=== PATIENT | male | born 1955 | race Caucasian/White ===

== ENCOUNTER → 2017-04-02 16:51 | Outpatient (CLI) | payer OTHER ==
[2017-04-02 19:04] LABS: CHOL - HDL RATIO 4.2 ratio (2.3-4.9); LDL-HDL RATIO 2.8 ratio (1.5-3.5)
== END | disposition home or self-care (01) ==
LOC: D.LABREF 16:51
PROVIDERS: Internal Medicine Cardiovascular Disease
DX: I10 Essential (primary) hypertension (principal)

== ENCOUNTER → 2017-06-17 16:24 | Outpatient (CLI) | payer OTHER ==
[2017-06-17 20:06] LABS: CHOL - HDL RATIO 2.8 ratio (2.3-4.9); LDL-HDL RATIO 1.7 ratio (1.5-3.5)
== END | disposition home or self-care (01) ==
LOC: D.LABREF 16:24
PROVIDERS: Internal Medicine Cardiovascular Disease
DX: I10 Essential (primary) hypertension (principal)

== ENCOUNTER → 2017-12-10 16:56 | Outpatient (CLI) | payer OTHER ==
[2017-12-10 17:55] LABS: CHOL - HDL RATIO 3.4 ratio (2.3-4.9); LDL-HDL RATIO 1.9 ratio (1.5-3.5)
== END | disposition home or self-care (01) ==
LOC: D.LABREF 16:56
PROVIDERS: Internal Medicine Cardiovascular Disease
DX: I10 Essential (primary) hypertension (principal)

== ENCOUNTER → 2017-12-12 12:31 | Outpatient (CLI) | payer OTHER ==
--- NOTE | ~2017-12-12 | EC ---
PATIENT:HORACE SHELLEY DATE OF SERVICE: 12/12/17 SEX: M MEDICAL RECORD: [id number] DATE OF : 55 [facility] AGE OF PATIENT: 62 ADMISSION DATE: 12/12/17 REFERRING PHYSICIAN: INTERPRETING PHYSICIAN: STUART FORD MD ECHOCARDIOGRAM REPORT ECHO CHARGES 4 ECHO COMPLETE Date: 12/12/17 CLINICAL DIAGNOSIS: HYPERCHOLESRLEMIA/HTN ECHOCARDIOGRAPHIC MEASUREMENTS (adult normal given) AC root (d.<3.7cm) 4.0 cm LV Septum d (<1.2 cm> 1.6 cm Valve Excursion 2.3 cm LV Septum (systole) 1.6 cm Left Atria (s.<4.0cm> 4.8 cm LVPW d(<1.2cm) 1.6 cm RV (d.<2.3cm) 4.7 cm LVPW (sytole) 1.8 cm LV diastole(<5.6CM) 5.8 cm MV E-F(>70mm/sec) cm LV systole 4.0 cm LVOT Diameter 2.2 cm MV exc.(>10mm) 1.8 cm Est.ejection fraction (50-75%) % DOPPLER: LVIT cm/sec A 62.0 cm/sec E 91.0 cm/sec LA cm/sec RVSP 25 mmHg LVOT 104 cm/sec AOP1/2T 711 m/s Asc. Ao 169 cm/sec RVOT 92 cm/sec RA cm/sec PA 143 cm/sec AV Gradient Peak 11.42mmHg AV Mean 6.29 mmHg AV Area 2.3 cm MV Gradient Peak 4.09 mmHg MV Mean 1.62 mmHg MV Area cm COMMENTS: Cardroom Hand: [address] Magistrate: 4 Dr. Ford TAPE# PACS Pericardial Effusion N DATE OF SERVICE: Transthoracic Echocardiogram FINDINGS: 1. Left ventricle shows evidence of left ventricular hypertrophy. The inflow characteristics were measured as normal ratios. The ejection fraction is 60% to 65%. There are no obvious regional wall motion abnormalities. Right ventricle was moderately dilated and there is right ventricular hypertrophy. 2. The left atrium has moderate left atrial enlargement, 4.8 cm. ECHOCARDIOGRAM REPORT [id number] HORACE SHELLEY 3. The aortic valve is shown to open well. It appears to be a trileaflet structure. 4. The mitral valve is normal, has good coaptation. There is mild mitral regurgitation. 5. Tricuspid valve, normally visualized. The pulse wave shows to have good function. The RVSP appears to be normal. 6. In one view, there appears to be a trace aortic insufficiency. There is no pericardial effusion. IMPRESSION: The patient has normal left ventricular systolic function, evidence of mild left ventricular hypertrophy, [id number] aortic insufficiency, and dilated right ventricle. TRANSINT:[id number] Voice Confirmation ID: [id number] DOCUMENT ID: [id number] STUART FORD MD CC: [id number] DICTATION DATE: 12/13/17904 RETAIL INTERIOR DESIGNER: 12/13/17 1008 DEP CLI 12/12/17 [id number] [place] [address]
== END | disposition home or self-care (01) ==
LOC: D.ECHO 12:31
DX: I10 Essential (primary) hypertension (principal); E78.00 Pure hypercholesterolemia, unspecified

== ENCOUNTER 2018-03-06 05:33 | Day surgery (SDC) | payer OTHER ==
[~2018-03-06] VITALS: Ht 185.4 cm; Wt 100.2 kg
--- NOTE | ~2018-03-06 | OP ---
PATIENT NAME: HORACE SHELLEY MEDICAL RECORD: [id number] :55 LOCATION:[facility] ADMISSION DATE: SURGEON: TANMAY ROOT MD DATE OF OPERATION: 03/06/2018 PREOPERATIVE DIAGNOSES: 1. Ventral hernia. 2. Hypertension. 3. Hypercholesterolemia. POSTOPERATIVE DIAGNOSES. 1. Ventral hernia. 2. Hypertension. 3. Hypercholesterolemia. PROCEDURE: Ventral hernia repair. SURGEON: Tanmay Root MD REPORT OF PROCEDURE: The patient's abdomen was prepped and draped in sterile fashion. A semicircular incision was made on the inferior aspect of the umbilicus. Electrocautery was used to dissect through the subcutaneous tissues. The umbilical stalk was elevated and just superior to this, there was noted to be a small hernia defect. The patient had some fatty tissue that was present within it that was eventually able to be reduced back into the abdominal cavity. We cleared up the fascial edges. The fascial defect was about 1.5 cm wide and 1 cm long. We cleared off the fascial edges above and below and then reapproximated the edge transversely using interrupted 0 Prolenes times 4. The wound was then irrigated out with normal saline and care was taken to assure there was no sign of any bleeding. The umbilicus was tacked down with an interrupted 3-0 Vicryl. The subcutaneous tissues were then reapproximated with interrupted 3-0 Vicryls. The skin was closed with running subcutaneous 5-0 Monocryl. A total of 10 mL of 0.25% Marcaine plain was infused into the surrounding tissues, and the wound was dressed appropriately. COMPLICATIONS: None. CONDITION: Stable. ANESTHESIA: General endotracheal and local. BLOOD LOSS: Minimal. TRANSINT:[id number] Voice Confirmation ID: [id number] DOCUMENT ID: [id number] TANMAY ROOT MD CC: ADRIENNE MARTELL [id number] DICTATION DATE: 03/06/18 0845 MIX MAKER: 03/06/18 1206 [facility] [place] 03/06/[address] [address]
[~2018-03-06 05:33] MED LIST: HCTZ25 MG PO; LIPITOR20 MG PO; LOTREL 5/10 MG1 CAP PO; MOBIC7.5 MG PO; ZOVIRAX400 MG PO
[2018-03-06 06:19] VITALS: BP 140/82; Ht 185.4 cm; Wt 100.2 kg
[2018-03-06] MEDS ORDERED: NORCO 10-325 TA1 TAB PO (08:40)
== END 2018-03-06 10:13 | disposition home or self-care (01) ==
LOC: D.PAN 05:33 → D.OPS 09:00 → D.PAN 10:13
DX: K43.9 Ventral hernia without obstruction or gangrene (principal); I10 Essential (primary) hypertension; E78.00 Pure hypercholesterolemia, unspecified; Z01.812 Encounter for preprocedural laboratory examination

== ENCOUNTER → 2018-04-24 14:58 | Outpatient (CLI) | payer OTHER ==
[2018-03-06 06:19] VITALS: BMI 29.2
[~2018-04-24 14:58] MED LIST changes: +NORCO 10-325 TA1 TAB PO
== END | disposition home or self-care (01) ==
LOC: D.CT 14:58
DX: R10.9 Unspecified abdominal pain (principal)

== ENCOUNTER → 2018-09-08 12:15 | Outpatient (CLI) | payer OTHER ==
[2018-03-06 06:19] VITALS: BMI 29.2
== END | disposition home or self-care (01) ==
LOC: D.RAD 12:15
PROVIDERS: ATTEND Urology
DX: N20.0 Calculus of kidney (principal)

== ENCOUNTER 2019-01-01 06:04 | Day surgery (SDC) | payer OTHER ==
[~2019-01-01] VITALS: Ht 185.4 cm; Wt 95.7 kg
[2019-01-01 06:58] VITALS: BP 143/74; Ht 185.4 cm; Wt 95.7 kg
[2019-01-01 07:38] LABS: BASOPHILS 0.2 % (0-2); EOSINOPHILS 0.9 % (0-7); HEMOGLOBIN 13.9 g/dL (13.5-17.5); IMMATURE GRANULOCYTES 0.2 % (0-5); LYMPHOCYTES 19.2 % (15-50); MCHC 34.8 g/dL (31.0-37.0); MEAN PLATELET VOLUME 8.9 fL (7.4-10.4); MONOCYTES 7.3 % (2-11); NEUTROPHILS 72.2 % (40-80); PLATELET COUNT 174 10x3/uL (130-400); RBC 4.35 10x6/uL (4.20-6.10); RDW 12.3 % (11.5-14.5)
[2019-01-01 07:44] LABS: CALC OSMOLALITY 285 mosm/kg (275-300); CALCIUM 8.8 mg/dL (8.5-10.1); CARBON DIOXIDE 32.2 mmol/L (21.0-32.0); CHLORIDE - SERUM 106 mmol/L (98-107); CREATININE - SERUM 0.8 mg/dL (0.6-1.3); GLUCOSE 105 mg/dL (74-106); POTASSIUM - SERUM 3.7 mmol/L (3.5-5.1); SODIUM 144 mmol/L (136-145); UREA NITROGEN 11 mg/dL (7-18); eGFR NON AFRICAN AMERICAN > 90 mL/min (90-120)
[2019-01-01] MEDS ORDERED: PERCOCET 5-3251 TAB PO (09:49)
[2019-01-01] MEDS ORDERED: CYCLOBENZAPRINE10 MG PO (09:51)
--- NOTE | 2019-01-01 15:41 | NUR ---
1355 STILL UNABLE TO VOID [id number] CC VIA BLADDER SCANNER. [address] PER [address] ROOT.S TO. PT TOLERATED WELL.
--- NOTE | 2019-01-15 13:47 | OP ---
PATIENT NAME: HORACE SHELLEY MEDICAL RECORD: [id number] :55 LOCATION:D.[facility] ADMISSION DATE: SURGEON: TANMAY ROOT MD DATE OF OPERATION: 01/01/2019 PREOPERATIVE DIAGNOSES: 1. Internal hemorrhoids. 2. Anal skin tags. 3. Hypertension. 4. Hypercholesterolemia. POSTOPERATIVE DIAGNOSES: 1. Mixed internal and external hemorrhoids. 2. Anal skin tags. 3. Hypertension. 4. Hypercholesterolemia. PROCEDURE: 1. PPH stapled hemorrhoidectomy. 2. Right anterior column hemorrhoidectomy. 3. Excision of anal skin tags times 2. SURGEON: Tanmay Root MD REPORT OF PROCEDURE: The patient was placed in the jackknife prone position and the perianal region was prepped and draped in sterile fashion. A 360-degree inspection was performed that showed the patient had internal hemorrhoids present throughout with the largest collection being on the anterior aspect of the anus. This collection of hemorrhoids extended out to an external hemorrhoid with a large skin tag. The patient also had skin tags bilaterally, which were small. We inserted the PPH anoscope and sutured it down on all 4 sides using interrupted 3-0 silks. The 2-0 Prolene was used as a pursestring inside of the anus and we were able to pass the stapler through this a pursestring and the pursestring was held tightly. With the pursestring in place, we fired the stapler. At the conclusion of this, we could see there was only the posterior aspect of the rectum had a staple fire on it. The anterior hemorrhoid, which was quite large, somehow did not make it into the stapler. We checked the staple line. There was no sign of any dehiscence of the staple line. There was no bleeding. We then placed a 2-0 chromic at the base of the anterior hemorrhoid and tied this down tightly. We then excised this hemorrhoid including the large skin tag using electrocautery with care taken not to injure the patient's sphincteric musculature. With the hemorrhoid removed, we then treated the area with electrocautery and irrigated out with normal saline. The suture was run out of the rectum to the anoderm in a locking fashion with good approximation of the tissue. We then took off the bilateral anal skin tags using electrocautery and left these wounds open. We treated the wound beds with electrocautery to stop any bleeding. We then irrigated out the wounds with normal saline and infused with a total of 10 mL of 0.25% Marcaine with epinephrine into the surrounding tissues. A piece of Gelfoam dipped in Americaine was placed into the rectum and a dressing was applied. COMPLICATIONS: None. CONDITION: Stable. OPERATIVE REPORT [id number] HORACE SHELLEY ANESTHESIA: General endotracheal and local. BLOOD LOSS: 30 mL. TRANSINT:[id number] Voice Confirmation ID: [id number] DOCUMENT ID: [id number] cc: Shannan Johnson [facility] TANMAY ROOT MD at 1347 CC: SHANNAN JOHNSON [id number] DICTATION DATE: 01/01/19 0958 ROLL FORM OPERATOR: 01/01/19 1103 [facility] [place] 01/01/19 [facility] [address] [place] [address]
== END 2019-01-01 14:45 | disposition home or self-care (01) ==
LOC: D.OPS 06:04 → D.PAN 08:15 → D.OPS 14:45
PROVIDERS: Anesthesiology; ATTEND Surgery
DX: K64.8 Other hemorrhoids (principal); K64.4 Residual hemorrhoidal skin tags; I10 Essential (primary) hypertension; E78.00 Pure hypercholesterolemia, unspecified

== ENCOUNTER → 2019-01-07 12:41 | Outpatient (CLI) | payer OTHER ==
[2019-01-01 06:58] VITALS: BMI 27.9
[~2019-01-07 12:41] MED LIST changes: +CYCLOBENZAPRINE10 MG PO; +PERCOCET 5-3251 TAB PO
== END | disposition home or self-care (01) ==
LOC: D.US 12:41
PROVIDERS: ATTEND Family Medicine
DX: N50.89 Other specified disorders of the male genital organs (principal)

== ENCOUNTER → 2019-02-25 12:22 | Outpatient (CLI) | payer OTHER ==
[2019-01-01 06:58] VITALS: BMI 27.9
== END | disposition home or self-care (01) ==
LOC: D.HCCARDIO 11:30 → D.HCCECHO 11:30
PROVIDERS: ATTEND Internal Medicine Cardiovascular Disease
DX: I34.0 Nonrheumatic mitral (valve) insufficiency (principal)

== ENCOUNTER → 2020-08-25 13:34 | Outpatient (CLI) | payer MEDICARE, OTHER ==
[2019-01-01 06:58] VITALS: BMI 27.9
== END | disposition home or self-care (01) ==
LOC: D.HCCECHO 13:30
PROVIDERS: ATTEND Internal Medicine Cardiovascular Disease
DX: I34.0 Nonrheumatic mitral (valve) insufficiency (principal)